=== PATIENT | female | born 1965 | race African-American/Black ===

== ENCOUNTER 2022-06-10 18:21 | Inpatient (IN) ==
[2022-06-10] MEDS ORDERED: SODIUM PHOSPHATE IV PRN (21:49)
[2022-06-10] MEDS ORDERED: SODIUM BICARB INJ 100 MEQ in STERILE WATER INJ 400 ML IV PRN (21:49)
[2022-06-10] MEDS ORDERED: SODIUM CHLORIDE 0.9% IV PRN (21:49)
[2022-06-10] MEDS ORDERED: fentaNYL INJ 1,250 MCG in SODIUM CHLORIDE 0.9% 225 ML IV PRN (21:56)
[2022-06-10] MEDS ORDERED: MIDAZOLAM 100 MG in SODIUM CHLORIDE 0.9% 80 ML IV PRN (21:56)
[2022-06-10] MEDS ORDERED: LORazepam 2 MG/1 ML VIAL IV ONE (22:00)
[2022-06-10 22:05] LABS: Arterial Base Excess iSTAT -6 MMOL/L (-2.5-2.5); Arterial Bicarbonate iSTAT 27.1 MMOL/L (20-26); Arterial O2 Saturation iSTAT 14 % (95-100); Arterial PCO2 iSTAT 94 MM HG (35-48); Arterial PO2 iSTAT 18 MM HG (80-95); Arterial Total CO2 iSTAT 30 MMO/L (23-27); Arterial pH iSTAT 7.067 (7.35-7.45)
[2022-06-10] MEDS ORDERED: MAGNESIUM SULF RIDER 2 GM/50 ML PREMIX IV PRN (22:08)
[2022-06-10] MEDS ORDERED: MAGNESIUM SULF RIDER 4 GM/100 ML PREMIX IV PRN (22:08)
[2022-06-10] MEDS ORDERED: ALBUTEROL 2.5 MG/3 ML NEB RESP TX PRN (22:10)
[2022-06-10] MEDS ORDERED: ONDANSETRON 4 MG/2 ML VIAL IV PRN (22:11)
[2022-06-10] MEDS ORDERED: DEXTROSE 50% 25 GM/50 ML SYRINGE IV PRN (22:29)
[2022-06-10] MEDS ORDERED: INSULIN REGULAR DRIP 100 ML IV SCH (22:30)
[2022-06-10] MEDS: SODIUM CHLORIDE 0.9% 1,000 ML IV SCH (22:45)
[2022-06-10 22:49] LABS: Basophils # 0.1 10*3/uL (0.0-0.2); Basophils % 0.7 % (0.0-0.8); Eosinophils # 0.2 10*3/uL (0.0-0.87); Eosinophils % 2.5 % (0.00-10.9); Hematocrit 39.3 VOL% (35.7-47.0); Hemoglobin 11.8 GM/DL (12.0-16.0); Immature Granulocytes % 0.3 %; Immature Granulocytes Absolute 0.03 #; Lymphocytes # 2.5 10*3/uL (1.4-4.0); Mean Platelet Volume 10.9 FL (9.6-12.0); Monocytes # 0.9 10*3/uL (0.11-0.8); Monocytes % 9.4 % (1.7-12.7); Neutrophils % 61.1 % (38.7-73.9); Platelet Count 193 T/CUMM (130-400); Red Blood Count 3.97 MC/CUMM (3.8-5.5); Red Cell Distribution Width 17.2 % (9.3-17.3); White Blood Count 9.8 T/CUMM (4-12)
[2022-06-10 23:01] LABS: INR 1.2; PT Patient Result 13.3 SECS (10.1-12.1)
[2022-06-10 23:07] LABS: Albumin 3.2 G/DL (3.4-5.0); Bilirubin,Total 0.4 MG/DL (0.20-1.00); Calcium 8.2 MG/DL (8.5-10.1); Potassium 3.1 MMOL/L (3.5-5.1); Total Protein 7.3 G/DL (6.4-8.2)
[2022-06-10] MEDS ORDERED: VECURONIUM 10 MG VIAL IV ONE (23:30)
[2022-06-10] MEDS: DEXTROSE 50% 25 GM/50 ML SYRINGE IV PRN ×2 (23:43→23:46)
[2022-06-10 23:44] LABS: Phosphorous 4.8 MG/DL (2.5-4.9)
[2022-06-10] MEDS ORDERED: DEXTROSE 10% 250 ML IV ONE (23:46)
[2022-06-11 00:40] LABS: Calcium 7.9 MG/DL (8.5-10.1); Potassium 2.8 MMOL/L (3.5-5.1)
[2022-06-11] MEDS: SODIUM CHLORIDE 0.9% 1,000 ML IV SCH (01:00)
[2022-06-11 01:47] LABS: ABG HCO3 26.2 MMOL/L (20-26); ABG PCO2 40.6 MM HG (35-48); ABG PH 7.424 (7.35-7.45)
[2022-06-11] MEDS ORDERED: HEPARIN 10,000 UNIT/10 ML VIAL IV PRN (01:47)
[2022-06-11] MEDS: DEXTROSE 50% 25 GM/50 ML SYRINGE IV PRN (01:50)
[2022-06-11] MEDS: PANTOPRAZOLE 40 MG VIAL IV SCH ×2 (02:18→22:14)
[2022-06-11] MEDS: HEPARIN 5,000 UNIT/1 ML VIAL SUBCUT SCH ×3 (02:18→20:11)
[2022-06-11] MEDS: DEXTROSE 10% 1,000 ML IV SCH (02:19)
[2022-06-11] MEDS ORDERED: SODIUM CHLORIDE 0.9% 1,000 ML IV SCH (03:00)
[2022-06-11 03:06] LABS: Basophils # 0.1 10*3/uL (0.0-0.2); Basophils % 0.8 % (0.0-0.8); Eosinophils # 0.3 10*3/uL (0.0-0.87); Eosinophils % 3.9 % (0.00-10.9); Hematocrit 32.3 VOL% (35.7-47.0); Immature Granulocytes % 0.2 %; Immature Granulocytes Absolute 0.02 #; Lymphocytes # 2.2 10*3/uL (1.4-4.0); Lymphocytes % 25.5 % (21.3-54.2); Mean Corpuscular Volume 97.3 FL (87-102); Mean Platelet Volume 11.2 FL (9.6-12.0); Monocytes # 0.9 10*3/uL (0.11-0.8); Monocytes % 10.6 % (1.7-12.7); Platelet Count 162 T/CUMM (130-400); Red Blood Count 3.32 MC/CUMM (3.8-5.5); White Blood Count 8.5 T/CUMM (4-12)
[2022-06-11 03:31] LABS: Phosphorous 3.8 MG/DL (2.5-4.9)
[2022-06-11 06:26] LABS: Calcium 7.9 MG/DL (8.5-10.1); Osmolality,Calculated 271.2 MOS/KG (273-304); Potassium 2.8 MMOL/L (3.5-5.1)
[2022-06-11] MEDS ORDERED: POTASSIUM CHLORIDE RIDER 20 MEQ/100 ML PREMIX IV ONE ×4 (08:00→20:00)
[2022-06-11 08:22] LABS: Calcium 7.8 MG/DL (8.5-10.1); Osmolality,Calculated 271.4 MOS/KG (273-304); Potassium 2.8 MMOL/L (3.5-5.1)
[2022-06-11 09:08] LABS: ABG Base Excess 1.1 MMOL/L (-2.5-2.5); ABG HCO3 25.5 MMOL/L (20-26); ABG Oxygen Saturation 99.8 % (95-100); ABG PCO2 33.5 MM HG (35-48); ABG PH 7.471 (7.35-7.45); ABG TCO2 22.2 MMOL/L (23-27)
[2022-06-11 09:14] LABS: Hepatitis B Core IgM Quant 0.16 Index; Hepatitis B Surface Ag Quant < 0.10 Index; Hepatitis B Surface Ag Result Non-Reactive (NonReactive); Hepatitis C Virus Ab Quant 0.11 Index; Hepatitis C Virus Ab Result Non-Reactive (NonReactive)
[2022-06-11] MEDS: DEXTROSE 10% 500 ML IV SCH (09:56)
[2022-06-11] MEDS: hydrALAZINE 20 MG/1 ML VIAL IV PRN ×2 (13:31→17:03)
[2022-06-11] MEDS ORDERED: SODIUM CHLORIDE 0.45% 1,000 ML IV SCH (15:00)
[2022-06-11 15:23] LABS: Calcium 8.1 MG/DL (8.5-10.1); Potassium 3.2 MMOL/L (3.5-5.1)
[2022-06-11 15:54] LABS: ABG Base Excess 2.6 MMOL/L (-2.5-2.5); ABG HCO3 26.8 MMOL/L (20-26); ABG Oxygen Saturation 99.4 % (95-100); ABG PCO2 41.2 MM HG (35-48); ABG PH 7.428 (7.35-7.45); ABG TCO2 24.3 MMOL/L (23-27)
[2022-06-11] MEDS: amLODIPine 5 MG TABLET PO SCH (16:04)
[2022-06-11] MEDS: PHENYTOIN 100 MG/2 ML VIAL IV SCH ×2 (16:04→23:55)
[2022-06-11] MEDS: hydrALAZINE 25 MG TABLET PO SCH (20:10)
[2022-06-11] MEDS: ACETAMINOPHEN 325 MG TABLET PO PRN (20:10)
[2022-06-12] MEDS: DEXTROSE 10% 1,000 ML IV SCH (02:04)
[2022-06-12 03:54] LABS: Basophils # 0.1 10*3/uL (0.0-0.2); Basophils % 0.6 % (0.0-0.8); Eosinophils # 0.3 10*3/uL (0.0-0.87); Eosinophils % 2.8 % (0.00-10.9); Hematocrit 33.8 VOL% (35.7-47.0); Hemoglobin 10.4 GM/DL (12.0-16.0); Immature Granulocytes % 0.1 %; Immature Granulocytes Absolute 0.01 #; Lymphocytes # 2.2 10*3/uL (1.4-4.0); Lymphocytes % 23.8 % (21.3-54.2); Mean Corpuscular HGB Conc 30.8 GM/DL (32-36); Mean Platelet Volume 11.5 FL (9.6-12.0); Monocytes # 0.8 10*3/uL (0.11-0.8); Monocytes % 8.4 % (1.7-12.7); Neutrophils % 64.3 % (38.7-73.9); Platelet Count 147 T/CUMM (130-400); Red Blood Count 3.45 MC/CUMM (3.8-5.5); Red Cell Distribution Width 17.3 % (9.3-17.3)
[2022-06-12 04:02] LABS: Arterial Base Excess iSTAT 4 MMOL/L (-2.5-2.5); Arterial Bicarbonate iSTAT 27.3 MMOL/L (20-26); Arterial O2 Saturation iSTAT 99 % (95-100); Arterial PCO2 iSTAT 37 MM HG (35-48); Arterial PO2 iSTAT 108 MM HG (80-95); Arterial Total CO2 iSTAT 28 MMO/L (23-27); Arterial pH iSTAT 7.472 (7.35-7.45)
[2022-06-12 04:14] LABS: Albumin 2.3 G/DL (3.4-5.0); Bilirubin,Total 0.4 MG/DL (0.20-1.00); Calcium 8.1 MG/DL (8.5-10.1); Osmolality,Calculated 275.4 MOS/KG (273-304); Potassium 3.7 MMOL/L (3.5-5.1)
[2022-06-12] MEDS: DEXTROSE 10% 500 ML IV SCH (05:35)
[2022-06-12] MEDS: ACETAMINOPHEN 325 MG TABLET PO PRN ×2 (07:44→20:09)
[2022-06-12] MEDS: CLOPIDOGREL 75 MG TABLET PO SCH (08:30)
[2022-06-12] MEDS: PHENYTOIN 100 MG/2 ML VIAL IV SCH ×3 (08:30→23:20)
[2022-06-12] MEDS: hydrALAZINE 25 MG TABLET PO SCH ×3 (08:30→20:09)
[2022-06-12] MEDS: amLODIPine 5 MG TABLET PO SCH (08:30)
[2022-06-12] MEDS: HEPARIN 5,000 UNIT/1 ML VIAL SUBCUT SCH ×2 (08:31→20:09)
[2022-06-12] MEDS: INSULIN LISPRO 100 UNIT/ML SUBCUT SCH ×5 (08:31→23:20)
[2022-06-12] MEDS: SEVELAMER CARBONATE 800 MG TABLET PO SCH ×3 (08:31→17:37)
[2022-06-12] MEDS: CEFEPIME 1,000 MG in SODIUM CHLORIDE 0.9% 100 ML IV SCH ×2 (10:41→23:20)
[2022-06-12] MEDS ORDERED: amLODIPine 5 MG TABLET PO SCH (15:15)
[2022-06-12] MEDS: DEXTROSE 50% 25 GM/50 ML SYRINGE IV PRN ×3 (17:10→18:42)
[2022-06-12] MEDS: hydrALAZINE 20 MG/1 ML VIAL IV PRN (22:22)
[2022-06-12] MEDS: PANTOPRAZOLE 40 MG VIAL IV SCH (23:20)
[2022-06-13] MEDS: ACETAMINOPHEN 325 MG TABLET PO PRN ×2 (03:45→21:28)
[2022-06-13] MEDS: INSULIN LISPRO 100 UNIT/ML SUBCUT SCH ×5 (04:15→21:27)
[2022-06-13 04:20] LABS: Basophils # 0.1 10*3/uL (0.0-0.2); Basophils % 0.6 % (0.0-0.8); Eosinophils # 0.4 10*3/uL (0.0-0.87); Eosinophils % 3.1 % (0.00-10.9); Hematocrit 35.4 VOL% (35.7-47.0); Hemoglobin 10.7 GM/DL (12.0-16.0); Immature Granulocytes % 0.5 %; Immature Granulocytes Absolute 0.06 #; Lymphocytes # 2.1 10*3/uL (1.4-4.0); Lymphocytes % 16.3 % (21.3-54.2); Mean Corpuscular HGB Conc 30.2 GM/DL (32-36); Mean Corpuscular Volume 97.8 FL (87-102); Mean Platelet Volume 11.4 FL (9.6-12.0); Monocytes # 0.9 10*3/uL (0.11-0.8); Monocytes % 6.8 % (1.7-12.7); Neutrophils % 72.7 % (38.7-73.9); Platelet Count 186 T/CUMM (130-400); Red Blood Count 3.62 MC/CUMM (3.8-5.5); Red Cell Distribution Width 17.2 % (9.3-17.3); White Blood Count 12.7 T/CUMM (4-12)
[2022-06-13 04:34] LABS: Arterial Base Excess iSTAT -1 MMOL/L (-2.5-2.5); Arterial Bicarbonate iSTAT 22.9 MMOL/L (20-26); Arterial O2 Saturation iSTAT 99 % (95-100); Arterial PCO2 iSTAT 36 MM HG (35-48); Arterial PO2 iSTAT 127 MM HG (80-95); Arterial Total CO2 iSTAT 24 MMO/L (23-27); Arterial pH iSTAT 7.416 (7.35-7.45)
[2022-06-13 04:36] LABS: Albumin 2.4 G/DL (3.4-5.0); Bilirubin,Total 0.4 MG/DL (0.20-1.00); Osmolality,Calculated 278.5 MOS/KG (273-304); Potassium 3.6 MMOL/L (3.5-5.1); Total Protein 6.6 G/DL (6.4-8.2)
[2022-06-13] MEDS: CLOPIDOGREL 75 MG TABLET PO SCH (08:41)
[2022-06-13] MEDS: HEPARIN 5,000 UNIT/1 ML VIAL SUBCUT SCH ×2 (08:41→21:28)
[2022-06-13] MEDS: PHENYTOIN 100 MG/2 ML VIAL IV SCH ×2 (08:41→17:30)
[2022-06-13] MEDS: SEVELAMER CARBONATE 800 MG TABLET PO SCH (17:15)
[2022-06-13] MEDS: CEFEPIME 1,000 MG in SODIUM CHLORIDE 0.9% 100 ML IV SCH ×2 (17:16→22:48)
[2022-06-13] MEDS: MENTHOL/ZINC OXIDE OINT 71 GM JAR TOP SCH (21:28)
[2022-06-13] MEDS: PANTOPRAZOLE 40 MG VIAL IV SCH (22:47)
[2022-06-13] MEDS: DEXTROSE 50% 25 GM/50 ML SYRINGE IV PRN (23:54)
[2022-06-14] MEDS: PHENYTOIN 100 MG/2 ML VIAL IV SCH ×3 (00:25→15:44)
[2022-06-14] MEDS: INSULIN LISPRO 100 UNIT/ML SUBCUT SCH ×5 (00:50→23:34)
[2022-06-14 03:48] LABS: Arterial Base Excess iSTAT 2 MMOL/L (-2.5-2.5); Arterial Bicarbonate iSTAT 25.8 MMOL/L (20-26); Arterial O2 Saturation iSTAT 99 % (95-100); Arterial PCO2 iSTAT 38 MM HG (35-48); Arterial PO2 iSTAT 135 MM HG (80-95); Arterial Total CO2 iSTAT 27 MMO/L (23-27); Arterial pH iSTAT 7.446 (7.35-7.45)
[2022-06-14] MEDS: DEXTROSE 50% 25 GM/50 ML SYRINGE IV PRN (04:09)
[2022-06-14 05:10] LABS: Basophils # 0.1 10*3/uL (0.0-0.2); Basophils % 0.5 % (0.0-0.8); Eosinophils # 0.6 10*3/uL (0.0-0.87); Eosinophils % 4.5 % (0.00-10.9); Hemoglobin 10.4 GM/DL (12.0-16.0); Immature Granulocytes % 0.4 %; Immature Granulocytes Absolute 0.05 #; Lymphocytes # 1.3 10*3/uL (1.4-4.0); Lymphocytes % 10.7 % (21.3-54.2); Mean Corpuscular HGB Conc 31.5 GM/DL (32-36); Mean Corpuscular Volume 96.2 FL (87-102); Mean Platelet Volume 11.5 FL (9.6-12.0); Monocytes % 8.1 % (1.7-12.7); Neutrophils % 75.8 % (38.7-73.9); Platelet Count 206 T/CUMM (130-400); Red Blood Count 3.43 MC/CUMM (3.8-5.5); Red Cell Distribution Width 16.5 % (9.3-17.3); White Blood Count 12.4 T/CUMM (4-12)
[2022-06-14 05:24] LABS: Calcium 8.4 MG/DL (8.5-10.1); Osmolality,Calculated 285.1 MOS/KG (273-304); Potassium 3.4 MMOL/L (3.5-5.1)
[2022-06-14] MEDS: MENTHOL/ZINC OXIDE OINT 71 GM JAR TOP SCH ×2 (08:46→21:31)
[2022-06-14] MEDS: CLOPIDOGREL 75 MG TABLET PO SCH (09:46)
[2022-06-14] MEDS: MULTIVITAMIN (BEROCCA) TABLET PO SCH (09:46)
[2022-06-14] MEDS: HEPARIN 5,000 UNIT/1 ML VIAL SUBCUT SCH ×2 (09:46→21:31)
[2022-06-14] MEDS ORDERED: HEPARIN 10,000 UNIT/10 ML VIAL IV PRN (11:38)
[2022-06-14] MEDS: SEVELAMER CARBONATE 800 MG TABLET PO SCH ×2 (16:45→16:46)
[2022-06-14] MEDS: CEFEPIME 1,000 MG in SODIUM CHLORIDE 0.9% 100 ML IV SCH ×2 (16:47→16:52)
[2022-06-14] MEDS: PANTOPRAZOLE 40 MG VIAL IV SCH (21:31)
[2022-06-15] MEDS: PHENYTOIN 100 MG/2 ML VIAL IV SCH ×4 (01:16→23:27)
[2022-06-15 03:28] LABS: Basophils # 0.1 10*3/uL (0.0-0.2); Basophils % 0.6 % (0.0-0.8); Eosinophils # 0.6 10*3/uL (0.0-0.87); Eosinophils % 4.7 % (0.00-10.9); Hematocrit 32.3 VOL% (35.7-47.0); Hemoglobin 10.2 GM/DL (12.0-16.0); Immature Granulocytes % 0.5 %; Immature Granulocytes Absolute 0.07 #; Lymphocytes # 1.7 10*3/uL (1.4-4.0); Lymphocytes % 13.1 % (21.3-54.2); Mean Corpuscular HGB Conc 31.6 GM/DL (32-36); Mean Corpuscular Volume 95.6 FL (87-102); Mean Platelet Volume 10.9 FL (9.6-12.0); Monocytes # 1.2 10*3/uL (0.11-0.8); Monocytes % 8.9 % (1.7-12.7); Neutrophils % 72.2 % (38.7-73.9); Platelet Count 279 T/CUMM (130-400); Red Blood Count 3.38 MC/CUMM (3.8-5.5); Red Cell Distribution Width 16.3 % (9.3-17.3); White Blood Count 12.9 T/CUMM (4-12)
[2022-06-15 03:44] LABS: Calcium 8.7 MG/DL (8.5-10.1); Osmolality,Calculated 276.8 MOS/KG (273-304); Potassium 3.1 MMOL/L (3.5-5.1)
[2022-06-15 04:42] LABS: Arterial Base Excess iSTAT 2 MMOL/L (-2.5-2.5); Arterial Bicarbonate iSTAT 27.1 MMOL/L (20-26); Arterial O2 Saturation iSTAT 99 % (95-100); Arterial PCO2 iSTAT 43 MM HG (35-48); Arterial PO2 iSTAT 124 MM HG (80-95); Arterial Total CO2 iSTAT 28 MMO/L (23-27)
[2022-06-15] MEDS: POTASSIUM CHLORIDE RIDER 10 MEQ/100 ML PREMIX IV PRN (06:07)
[2022-06-15] MEDS: INSULIN LISPRO 100 UNIT/ML SUBCUT SCH ×6 (06:12→23:45)
[2022-06-15] MEDS: HEPARIN 5,000 UNIT/1 ML VIAL SUBCUT SCH ×2 (08:44→20:44)
[2022-06-15] MEDS: SEVELAMER CARBONATE 800 MG TABLET PO SCH ×3 (08:44→17:40)
[2022-06-15] MEDS: CLOPIDOGREL 75 MG TABLET PO SCH (08:45)
[2022-06-15] MEDS: MENTHOL/ZINC OXIDE OINT 71 GM JAR TOP SCH ×2 (08:45→20:44)
[2022-06-15] MEDS: MULTIVITAMIN (BEROCCA) TABLET PO SCH (08:45)
[2022-06-15] MEDS: DEXTROSE 50% 25 GM/50 ML SYRINGE IV PRN (08:46)
[2022-06-15] MEDS ORDERED: amLODIPine 10 MG TABLET PO SCH (09:00)
[2022-06-15] MEDS ORDERED: RACEPINEPHRINE 0.5 ML NEB RESP TX ONE ×3 (10:36→16:01)
[2022-06-15] MEDS: CEFEPIME 1,000 MG in SODIUM CHLORIDE 0.9% 100 ML IV SCH (17:40)
[2022-06-15] MEDS: ALBUTEROL/IPRATROPIUM 3 ML NEB RESP TX SCH (19:30)
[2022-06-15] MEDS: PANTOPRAZOLE 40 MG VIAL IV SCH (22:45)
[2022-06-15] MEDS: ACETAMINOPHEN 325 MG TABLET PO PRN (23:27)
[2022-06-16] MEDS: ALBUTEROL/IPRATROPIUM 3 ML NEB RESP TX SCH ×7 (00:43→23:45)
[2022-06-16 04:13] LABS: Arterial Base Excess iSTAT -1 MMOL/L (-2.5-2.5); Arterial Bicarbonate iSTAT 24.8 MMOL/L (20-26); Arterial O2 Saturation iSTAT 93 % (95-100); Arterial PCO2 iSTAT 44 MM HG (35-48); Arterial PO2 iSTAT 69 MM HG (80-95); Arterial Total CO2 iSTAT 26 MMO/L (23-27); Arterial pH iSTAT 7.359 (7.35-7.45)
[2022-06-16] MEDS: INSULIN LISPRO 100 UNIT/ML SUBCUT SCH ×6 (04:53→23:35)
[2022-06-16 05:07] LABS: Basophils # 0.1 10*3/uL (0.0-0.2); Basophils % 0.5 % (0.0-0.8); Eosinophils # 0.3 10*3/uL (0.0-0.87); Eosinophils % 1.7 % (0.00-10.9); Hematocrit 31.3 VOL% (35.7-47.0); Hemoglobin 9.7 GM/DL (12.0-16.0); Immature Granulocytes % 0.7 %; Immature Granulocytes Absolute 0.12 #; Lymphocytes # 2.5 10*3/uL (1.4-4.0); Lymphocytes % 14.6 % (21.3-54.2); Mean Corpuscular Volume 96.9 FL (87-102); Monocytes # 1.8 10*3/uL (0.11-0.8); Monocytes % 10.3 % (1.7-12.7); Neutrophils % 72.2 % (38.7-73.9); Platelet Count 363 T/CUMM (130-400); Red Blood Count 3.23 MC/CUMM (3.8-5.5); Red Cell Distribution Width 16.3 % (9.3-17.3); White Blood Count 17.2 T/CUMM (4-12)
[2022-06-16 05:25] LABS: Osmolality,Calculated 284.1 MOS/KG (273-304); Potassium 3.7 MMOL/L (3.5-5.1)
[2022-06-16] MEDS: MULTIVITAMIN (BEROCCA) TABLET PO SCH (09:40)
[2022-06-16] MEDS: PHENYTOIN 100 MG/2 ML VIAL IV SCH ×2 (09:40→16:12)
[2022-06-16] MEDS: CLOPIDOGREL 75 MG TABLET PO SCH (09:41)
[2022-06-16] MEDS: MENTHOL/ZINC OXIDE OINT 71 GM JAR TOP SCH ×2 (09:41→21:09)
[2022-06-16] MEDS: SEVELAMER CARBONATE 800 MG TABLET PO SCH ×3 (09:41→18:06)
[2022-06-16] MEDS: HEPARIN 5,000 UNIT/1 ML VIAL SUBCUT SCH ×2 (09:41→21:08)
[2022-06-16] MEDS: DEXTROSE 50% 25 GM/50 ML SYRINGE IV PRN ×2 (14:42→14:54)
[2022-06-16 16:11] LABS: Arterial Base Excess iSTAT 5 MMOL/L (-2.5-2.5); Arterial Bicarbonate iSTAT 29.7 MMOL/L (20-26); Arterial O2 Saturation iSTAT 99 % (95-100); Arterial PCO2 iSTAT 42 MM HG (35-48); Arterial PO2 iSTAT 117 MM HG (80-95); Arterial Total CO2 iSTAT 31 MMO/L (23-27); Arterial pH iSTAT 7.463 (7.35-7.45)
[2022-06-16] MEDS: MORPHINE 2 MG/1 ML SYRINGE IV PRN ×2 (16:11→21:25)
[2022-06-16] MEDS: CEFEPIME 1,000 MG in SODIUM CHLORIDE 0.9% 100 ML IV SCH (18:04)
[2022-06-16] MEDS: PANTOPRAZOLE 40 MG VIAL IV SCH (21:38)
[2022-06-17] MEDS: PHENYTOIN 100 MG/2 ML VIAL IV SCH (00:39)
[2022-06-17] MEDS: ALBUTEROL/IPRATROPIUM 3 ML NEB RESP TX SCH ×6 (03:29→23:30)
[2022-06-17 04:05] LABS: Basophils # 0.1 10*3/uL (0.0-0.2); Basophils % 0.6 % (0.0-0.8); Eosinophils # 0.2 10*3/uL (0.0-0.87); Hematocrit 28.5 VOL% (35.7-47.0); Hemoglobin 8.9 GM/DL (12.0-16.0); Immature Granulocytes % 2.4 %; Immature Granulocytes Absolute 0.35 #; Lymphocytes # 2.5 10*3/uL (1.4-4.0); Lymphocytes % 16.5 % (21.3-54.2); Mean Corpuscular HGB Conc 31.2 GM/DL (32-36); Mean Corpuscular Volume 95.6 FL (87-102); Monocytes # 1.7 10*3/uL (0.11-0.8); Monocytes % 11.4 % (1.7-12.7); Neutrophils % 68.1 % (38.7-73.9); Platelet Count 373 T/CUMM (130-400); Red Blood Count 2.98 MC/CUMM (3.8-5.5); Red Cell Distribution Width 15.9 % (9.3-17.3); White Blood Count 14.9 T/CUMM (4-12)
[2022-06-17 04:14] LABS: Calcium 9.6 MG/DL (8.5-10.1); Osmolality,Calculated 281.8 MOS/KG (273-304); Potassium 3.8 MMOL/L (3.5-5.1)
[2022-06-17 04:31] LABS: Band Neutrophils 7 % (0-10); Eosinophils 1 % (0-10); Hypochromia 1+; Lymphocytes 12 % (20-55); Macrocytosis Slight; Total Cells Counted 100
[2022-06-17 04:32] LABS: Platelet Estimate Normal
[2022-06-17] MEDS: INSULIN LISPRO 100 UNIT/ML SUBCUT SCH ×6 (05:33→23:45)
[2022-06-17] MEDS: POTASSIUM CHLORIDE RIDER 10 MEQ/100 ML PREMIX IV PRN (05:37)
[2022-06-17] MEDS: MORPHINE 2 MG/1 ML SYRINGE IV PRN ×2 (06:25→23:54)
[2022-06-17] MEDS: HEPARIN 5,000 UNIT/1 ML VIAL SUBCUT SCH ×2 (09:33→21:17)
[2022-06-17] MEDS: SEVELAMER CARBONATE 800 MG TABLET PO SCH ×3 (09:34→17:56)
[2022-06-17] MEDS: MULTIVITAMIN (BEROCCA) TABLET PO SCH (09:34)
[2022-06-17] MEDS: CLOPIDOGREL 75 MG TABLET PO SCH (09:34)
[2022-06-17] MEDS: PHENYTOIN 100 MG/4 ML UDCUP PER TUBE SCH ×3 (09:34→21:17)
[2022-06-17] MEDS: MENTHOL/ZINC OXIDE OINT 71 GM JAR TOP SCH ×2 (13:55→21:18)
[2022-06-17] MEDS: ACETAMINOPHEN 325 MG TABLET PO PRN ×2 (17:33→22:28)
[2022-06-17] MEDS: CEFEPIME 1,000 MG in SODIUM CHLORIDE 0.9% 100 ML IV SCH (17:35)
[2022-06-17] MEDS: PANTOPRAZOLE 40 MG VIAL IV SCH (21:34)
[2022-06-18 00:58] LABS: Albumin 1.8 G/DL (3.4-5.0); Bilirubin,Total 0.5 MG/DL (0.20-1.00); Calcium 9.8 MG/DL (8.5-10.1); Osmolality,Calculated 289.5 MOS/KG (273-304); Phosphorous 4.6 MG/DL (2.5-4.9); Total Protein 6.5 G/DL (6.4-8.2)
[2022-06-18] MEDS: ACETAMINOPHEN 325 MG TABLET PO PRN (03:30)
[2022-06-18] MEDS: ALBUTEROL/IPRATROPIUM 3 ML NEB RESP TX SCH ×6 (03:31→23:40)
[2022-06-18 03:51] LABS: Basophils # 0.1 10*3/uL (0.0-0.2); Basophils % 0.5 % (0.0-0.8); Eosinophils # 0.2 10*3/uL (0.0-0.87); Eosinophils % 1.5 % (0.00-10.9); Hematocrit 27.6 VOL% (35.7-47.0); Hemoglobin 8.5 GM/DL (12.0-16.0); Immature Granulocytes % 0.3 %; Immature Granulocytes Absolute 0.05 #; Lymphocytes # 2.3 10*3/uL (1.4-4.0); Mean Corpuscular HGB Conc 30.8 GM/DL (32-36); Mean Corpuscular Volume 96.2 FL (87-102); Mean Platelet Volume 10.8 FL (9.6-12.0); Monocytes # 1.4 10*3/uL (0.11-0.8); Monocytes % 8.8 % (1.7-12.7); NRBC # 0.02 10*3/uL; Neutrophils % 74.9 % (38.7-73.9); Platelet Count 401 T/CUMM (130-400); Red Blood Count 2.87 MC/CUMM (3.8-5.5); Red Cell Distribution Width 16.5 % (9.3-17.3); White Blood Count 16.3 T/CUMM (4-12)
[2022-06-18 04:09] LABS: Calcium 9.9 MG/DL (8.5-10.1); Osmolality,Calculated 292.5 MOS/KG (273-304); Potassium 4.6 MMOL/L (3.5-5.1)
[2022-06-18] MEDS: INSULIN LISPRO 100 UNIT/ML SUBCUT SCH ×6 (04:09→23:44)
[2022-06-18 04:10] LABS: Band Neutrophils 5 % (0-10); Eosinophils 2 % (0-10); Hypochromia Slight; Lymphocytes 9 % (20-55); Microcytosis Slight; Nucleated Red Blood Cells 1 /100 WBC (0-5); Platelet Estimate Adequate; Total Cells Counted 100
[2022-06-18] MEDS: CLOPIDOGREL 75 MG TABLET PO SCH (08:40)
[2022-06-18] MEDS: HEPARIN 5,000 UNIT/1 ML VIAL SUBCUT SCH ×2 (08:40→20:37)
[2022-06-18] MEDS: MULTIVITAMIN (BEROCCA) TABLET PO SCH (08:40)
[2022-06-18] MEDS: SEVELAMER CARBONATE 800 MG TABLET PO SCH ×3 (08:40→17:09)
[2022-06-18] MEDS: PHENYTOIN 100 MG/4 ML UDCUP PER TUBE SCH ×3 (08:40→20:37)
[2022-06-18] MEDS: MENTHOL/ZINC OXIDE OINT 71 GM JAR TOP SCH ×2 (11:05→20:37)
[2022-06-18] MEDS ORDERED: ALBUMIN 25% 25 GM/100 ML VIAL IV ONE (14:30)
[2022-06-18] MEDS: DEXTROSE 50% 25 GM/50 ML SYRINGE IV PRN (19:35)
[2022-06-18] MEDS: CEFEPIME 1,000 MG in SODIUM CHLORIDE 0.9% 100 ML IV SCH (19:37)
[2022-06-18] MEDS: PANTOPRAZOLE 40 MG VIAL IV SCH (22:03)
[2022-06-19] MEDS: ACETAMINOPHEN 325 MG TABLET PO PRN ×2 (00:18→16:35)
[2022-06-19] MEDS: ALBUTEROL/IPRATROPIUM 3 ML NEB RESP TX SCH ×6 (03:21→23:14)
[2022-06-19] MEDS: INSULIN LISPRO 100 UNIT/ML SUBCUT SCH ×6 (03:41→23:44)
[2022-06-19 04:08] LABS: Basophils # 0.1 10*3/uL (0.0-0.2); Basophils % 0.5 % (0.0-0.8); Eosinophils # 0.1 10*3/uL (0.0-0.87); Eosinophils % 0.5 % (0.00-10.9); Hematocrit 24.1 VOL% (35.7-47.0); Hemoglobin 7.3 GM/DL (12.0-16.0); Immature Granulocytes % 0.7 %; Immature Granulocytes Absolute 0.11 #; Lymphocytes # 1.8 10*3/uL (1.4-4.0); Lymphocytes % 12.2 % (21.3-54.2); Mean Corpuscular HGB Conc 30.3 GM/DL (32-36); Mean Corpuscular Volume 99.6 FL (87-102); Mean Platelet Volume 11.5 FL (9.6-12.0); Monocytes # 1.1 10*3/uL (0.11-0.8); NRBC # 0.07 10*3/uL; Neutrophils % 79.1 % (38.7-73.9); Platelet Count 348 T/CUMM (130-400); Red Blood Count 2.42 MC/CUMM (3.8-5.5); Red Cell Distribution Width 16.9 % (9.3-17.3); White Blood Count 15.1 T/CUMM (4-12)
[2022-06-19 04:27] LABS: Calcium 9.2 MG/DL (8.5-10.1); Osmolality,Calculated 284.7 MOS/KG (273-304); Potassium 4.9 MMOL/L (3.5-5.1)
[2022-06-19 04:32] LABS: Band Neutrophils 2 % (0-10); Hypochromia Slight; Lymphocytes 9 % (20-55); Macrocytosis Slight; Nucleated Red Blood Cells 1 /100 WBC (0-5); Platelet Estimate Adequate; Total Cells Counted 100
[2022-06-19] MEDS: CLOPIDOGREL 75 MG TABLET PO SCH (08:20)
[2022-06-19] MEDS: MULTIVITAMIN (BEROCCA) TABLET PO SCH (08:21)
[2022-06-19] MEDS: SEVELAMER CARBONATE 800 MG TABLET PO SCH ×3 (08:21→16:35)
[2022-06-19] MEDS: HEPARIN 5,000 UNIT/1 ML VIAL SUBCUT SCH ×2 (08:21→20:37)
[2022-06-19] MEDS: PHENYTOIN 100 MG/4 ML UDCUP PER TUBE SCH ×3 (08:21→20:37)
[2022-06-19] MEDS: MENTHOL/ZINC OXIDE OINT 71 GM JAR TOP SCH ×2 (08:21→20:37)
[2022-06-19] MEDS ORDERED: GENTAMICIN INJ 80 MG/50 ML PREMIX IV PRN (08:24)
[2022-06-19] MEDS ORDERED: MEROPENEM 500 MG in SODIUM CHLORIDE 0.9% 100 ML IV SCH (10:00)
[2022-06-19] MEDS ORDERED: GENTAMICIN INJ 100 MG/100 ML PREMIX IV ONE (11:00)
[2022-06-19] MEDS: MORPHINE 2 MG/1 ML SYRINGE IV PRN (17:03)
[2022-06-19 17:42] LABS: Arterial Base Excess iSTAT 0 MMOL/L (-2.5-2.5); Arterial Bicarbonate iSTAT 24.5 MMOL/L (20-26); Arterial O2 Saturation iSTAT 95 % (95-100); Arterial PCO2 iSTAT 39 MM HG (35-48); Arterial PO2 iSTAT 75 MM HG (80-95); Arterial Total CO2 iSTAT 26 MMO/L (23-27); Arterial pH iSTAT 7.403 (7.35-7.45)
[2022-06-19] MEDS: PANTOPRAZOLE 40 MG VIAL IV SCH (23:15)
[2022-06-19] MEDS ORDERED: SODIUM CHLORIDE 0.9% 250 ML IV ONE (23:16)
[2022-06-20] MEDS ORDERED: SODIUM CHLORIDE 0.9% 250 ML IV ONE (00:33)
[2022-06-20] MEDS ORDERED: NOREPINEPHRINE 4 MG/4 ML VIAL IV ONE (01:51)
[2022-06-20] MEDS: NOREPINEPHRINE 8 MG in SODIUM CHLORIDE 0.9% 242 ML IV PRN ×2 (01:55→08:16)
[2022-06-20] MEDS: ALBUTEROL/IPRATROPIUM 3 ML NEB RESP TX SCH ×2 (03:09→07:35)
[2022-06-20] MEDS: DEXTROSE 50% 25 GM/50 ML SYRINGE IV PRN (03:33)
[2022-06-20] MEDS: INSULIN LISPRO 100 UNIT/ML SUBCUT SCH ×2 (03:51→08:31)
[2022-06-20 03:53] LABS: Arterial Base Excess iSTAT -10 MMOL/L (-2.5-2.5); Arterial Bicarbonate iSTAT 17.3 MMOL/L (20-26); Arterial O2 Saturation iSTAT 77 % (95-100); Arterial PCO2 iSTAT 42 MM HG (35-48); Arterial PO2 iSTAT 49 MM HG (80-95); Arterial Total CO2 iSTAT 19 MMO/L (23-27); Arterial pH iSTAT 7.221 (7.35-7.45)
[2022-06-20] MEDS ORDERED: HYDROCORTISONE 100 MG VIAL IV SCH (04:00)
[2022-06-20 04:11] LABS: Basophils # 0.1 10*3/uL (0.0-0.2); Basophils % 0.6 % (0.0-0.8); Eosinophils # 0.2 10*3/uL (0.0-0.87); Eosinophils % 1.4 % (0.00-10.9); Hematocrit 24.5 VOL% (35.7-47.0); Hemoglobin 7.2 GM/DL (12.0-16.0); Immature Granulocytes % 1.1 %; Immature Granulocytes Absolute 0.15 #; Lymphocytes # 2.4 10*3/uL (1.4-4.0); Lymphocytes % 17.1 % (21.3-54.2); Mean Corpuscular HGB Conc 29.4 GM/DL (32-36); Mean Corpuscular Volume 100.8 FL (87-102); Mean Platelet Volume 11.6 FL (9.6-12.0); Monocytes % 7.3 % (1.7-12.7); NRBC # 0.25 10*3/uL; Neutrophils % 72.5 % (38.7-73.9); Platelet Count 345 T/CUMM (130-400); Red Blood Count 2.43 MC/CUMM (3.8-5.5); Red Cell Distribution Width 17.3 % (9.3-17.3)
[2022-06-20] MEDS: ACETAMINOPHEN 325 MG TABLET PO PRN (04:13)
[2022-06-20] MEDS ORDERED: SODIUM BICARBONATE 50 MEQ/50 ML VIAL IV ONE (04:27)
[2022-06-20 04:30] LABS: Calcium 8.8 MG/DL (8.5-10.1); Osmolality,Calculated 300.4 MOS/KG (273-304); Potassium 5.7 MMOL/L (3.5-5.1)
[2022-06-20 04:41] LABS: Phosphorous 5.7 MG/DL (2.5-4.9)
[2022-06-20 05:07] LABS: Band Neutrophils 10 % (0-10); Lymphocytes 22 % (20-55); Macrocytosis 1+; Metamyelocytes 1 %; Nucleated Red Blood Cells 1 /100 WBC (0-5); Total Cells Counted 100
[2022-06-20 05:08] LABS: Polychromasia Slight
[2022-06-20] MEDS: ACETAMINOPHEN 650 MG SUPP RECTAL PRN ×2 (06:02→09:22)
[2022-06-20] MEDS ORDERED: MORPHINE 2 MG/1 ML SYRINGE IV ONE (09:06)
[2022-06-20] MEDS: SEVELAMER CARBONATE 800 MG TABLET PO SCH (09:18)
[2022-06-20] MEDS: MULTIVITAMIN (BEROCCA) TABLET PO SCH (09:18)
[2022-06-20] MEDS: CLOPIDOGREL 75 MG TABLET PO SCH (09:19)
[2022-06-20] MEDS: PHENYTOIN 100 MG/4 ML UDCUP PER TUBE SCH (09:19)
[2022-06-20] MEDS: HEPARIN 5,000 UNIT/1 ML VIAL SUBCUT SCH (09:20)
[2022-06-20] MEDS: MENTHOL/ZINC OXIDE OINT 71 GM JAR TOP SCH (09:20)
[2022-06-20] MEDS ORDERED: SODIUM CHLORIDE 0.9% 1,000 ML IV PRN (09:23)
[2022-06-20] MEDS ORDERED: methylPREDNISolone SOD SUC 40 MG/1 ML VIAL IV SCH (09:30)
[2022-06-20] MEDS ORDERED: ROCURONIUM 100 MG/10 ML VIAL IV ONE (09:58)
[2022-06-20] MEDS ORDERED: ETOMIDATE 20 MG/10 ML VIAL IV ONE (09:58)
[2022-06-20] MEDS ORDERED: EPINEPHrine 1 MG/10 ML SYRINGE IV ONE (10:12)
[2022-06-20] MEDS ORDERED: SODIUM BICARBONATE 50 MEQ/50 ML SYRINGE IV ONE (10:13)
[2022-06-20] MEDS ORDERED: EPINEPHrine 1 MG/ML VIAL ONE (10:16)
[2022-06-20] MEDS ORDERED: AMIODARONE 150 MG/3 ML VIAL IV ONE (10:23)
[2022-06-20] MEDS ORDERED: MAGNESIUM SULFATE 1 GM/2 ML VIAL IV ONE (10:30)
[2022-06-20] MEDS ORDERED: AMIODARONE INJ 450 MG in DEXTROSE 5% 241 ML IV SCH ×2 (10:30→16:30)
[2022-06-20] MEDS ORDERED: CALCIUM CHLORIDE 1,000 MG/10 ML SYRINGE IV ONE (10:39)
[2022-06-20] MEDS ORDERED: MIDAZOLAM 100 MG in SODIUM CHLORIDE 0.9% 80 ML IV PRN (11:00)
[2022-06-20 13:29] VITALS: BP 90/58
[2022-06-20] MEDS ORDERED: ACETYLCYSTEINE 20% 800 MG/4 ML VIAL RESP TX SCH (15:00)
== END 2022-06-20 10:48 | disposition expired | DRG 130 ==
LOC: SUATTDRO 21:29 → EDBD 21:29 → N.ICU 21:29
PROVIDERS: ADMIT Family Medicine; ATTEND Internal Medicine